=== PATIENT | female | born 1935 | race Caucasian/White ===

== ENCOUNTER 2019-10-02 11:10 | Emergency (ER) | payer MEDICARE, SELFPAY ==
[2019-10-02 11:24] VITALS: BP 116/75; PULSE 117; RESP 16; TEMP 36.7; O2SAT 98
--- NOTE | 2019-10-02 11:37 | ED.URI ---
HPI - URI/Sore Throat General Chief Complaint: Upper Respiratory Infection Stated Complaint: sore throat Time Seen by Provider: 10/02/19 11:37 Source: patient and RN notes reviewed History of Present Illness HPI Narrative: Patient is an 83-year-old female that presents the urgent care with complaints of a one-week sore throat postnasal drainage, runny nose and cough. Patient states she is followed up with her doctor and was told to use Claritin which does not seem to help . Patient states she is also been using nasal spray without any relief. Patient has not followed up with an ENT. Denies any fever, chills, nausea, vomiting. No other acute complaints. No acute distress noted. Patient aware of the plan of care. Related Data Home Medications Medication Instructions Recorded Confirmed No Home Medications 10/02/19 10/02/19 Allergies Allergy/AdvReac Type Severity Reaction Status Date / Time hydromorphone Allergy Mild Nausea and Verified 10/02/19 11:42 Vomiting meloxicam Allergy Mild Nausea and Verified 10/02/19 11:42 Vomiting morphine Allergy Mild Nausea and Verified 10/02/19 11:42 Vomiting ALL PAIN MEDICINES AdvReac Unknown Nausea and Uncoded 07/24/17 16:37 Vomiting Review of Systems Review of Systems: Narrative: CONSTITUTIONAL: Denies fever, chills, or sweats. EYES: Denies visual changes, redness, or discharge. ENT: Reports of sore throat, postnasal drainage, runny nose CARDIOVASCULAR: Denies chest pain, palpitations, or edema. RESPIRATORY: Denies cough or dyspnea. GASTROINTESTINAL: Denies abdominal pain, nausea, vomiting, or diarrhea. GENITOURINARY: Denies dysuria or hematuria. SKIN: Denies rash or itching. MUSCULOSKELETAL: Denies back pain, joint pain, or myalgia. NEUROLOGIC: Denies headache, numbness, or weakness. All other systems reviewed are negative, except as documented in HPI. [facility] Past Medical History Medical History (Updated 10/02/19 @ 12:01 by PARTHA Lowe) Chronic bilateral low back pain without sciatica Insomnia Mixed stress and urge urinary incontinence Seasonal allergies Thyroid nodule Unspecified osteoarthritis, unspecified site Social History Social History Smoking status: Never smoker Alcohol intake: never Comments At the time of my signature, I reviewed and agree with the nursing past medical, surgical, social, and family history. There is no relevant family history pertinent to the patient complaint. Exam Narrative: Exam Narrative: GENERAL: This is a well-nourished, well-developed patient, in no apparent distress. HEAD: normocephalic, atraumatic. EYES: PERRL. Sclera clear/white. Vision is grossly intact. EARS: External ears normal, auditory canals clear and without drainage, TMs normal without perforation. Hearing grossly intact. NOSE: External nose normal with no obvious nasal discharge, mild bilateral erythemic nares with clear rhinorrhea THROAT: Mucous membranes moist, posterior pharynx clear. Mild postnasal drainage NECK: Neck supple, non-tender without lymphadenopathy CARDIOVASCULAR: Regular rate and rhythm without murmurs, gallops, or rubs. RESPIRATORY: Clear to auscultation. Breath sounds equal bilaterally. No wheezes, rales, or rhonchi. SKIN: warm, intact with no suspicious lesions or rash, good texture and turgor. NEURO: awake, alert, and oriented to person, place and time. There were no obvious focal neurologic abnormalities. EXTREMITIES: No clubbing, cyanosis, or edema. Course Vital Signs Vital signs: Vital Signs Temperature 98.1 F 10/02/19 11:24 Pulse Rate 117 H 10/02/19 11:24 Respiratory Rate 16 10/02/19 11:24 Blood Pressure 116/75 10/02/19 11:24 Pulse Oximetry 98 10/02/19 11:24 Temperature 99.0 F 10/02/19 11:48 Pulse Rate 115 H 10/02/19 11:48 Respiratory Rate 21 H 10/02/19 11:48 Blood Pressure 104/69 10/02/19 11:48 Pulse Oximetry 100
[2019-10-02 11:48] VITALS: BP 104/69; PULSE 115; RESP 21; TEMP 37.2; O2SAT 100
== END 2019-10-02 12:05 | disposition home or self-care (01) ==
PROVIDERS: Emergency Provider Nurse Practitioner Family
DX: J30.9 Allergic rhinitis, unspecified (principal)
CPT/HCPCS: 87081; 87880; 99213; G0463

== ENCOUNTER → 2020-07-24 13:43 | Outpatient (CLI) | payer MEDICARE, SELFPAY ==
--- NOTE | ~2020-07-24 | XR_ITS ---
EXAMINATION: XR ankle RT min 3V EXAM DATE: 07/24/2020 14:01 INDICATION: Right ankle pain anteriorly, swelling. No known recent injury. TECHNIQUE: Right ankle frontal, lateral and oblique projections obtained and reviewed. There is no p rior study for comparison. 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 There is mild right ankle osteoarthritis. There are no acute fractures or dislocations iden tified. There is no subcutaneous gas. There is soft tissue swelling over the ankle anterolaterally. There are no radiopaque foreign bodies. IMPRESSION: Mild right ankle osteoarthritis. Probable osteochondritis desiccation. Soft tissue swelli ng. Reviewed, dictated and finalized at location A. ETING CLERK IMPRESSION: Mild right ankle osteoarthritis. Probable osteochondritis desiccati on. Soft tissue swelling.
== END ==
PROVIDERS: PCP Nurse Practitioner; Visit Provider Nurse Practitioner
DX: M19.071 Primary osteoarthritis, right ankle and foot (principal)
CPT/HCPCS: 73610

== ENCOUNTER 2020-09-01 14:59 | Outpatient (CLI) | payer MEDICARE, SELFPAY ==
--- NOTE | ~2020-09-01 | MR_ITS ---
EXAMINATION: MR lumbar spine wo con DATE: 09/01/2020 16:10 INDICATION: Low back pain. TECHNIQUE: Magnetic resonance imaging (MRI) of the lumbar spine was performed without intravenous con trast. Sequences included sagittal T2-weighted FSE, sagittal T2-weighted FS FSE, sagittal T1-weighted FSE, and axial T2-weighted FSE. COMPARISON: Lumbar spine radiographs 06/12/2019 FINDINGS: There is 14 degrees dextroscoliosis of lumbar spine. There is 3 mm retrolisthesis of T11 on T12. Vertebral body heights are normal. There is severely decreased disc height at T11-T12, mildly d ecreased disc height at T12-L1 and L1-L2, and severely decreased disc height from L2-L3 through L4-L5 with endplate remodeling. The distal spinal cord signal intensity is normal. The conus medullaris is at L1. There are cysts in left kidney measuring up to 14 mm. The following disc levels are specifica lly discussed: L1-L2: The disc is bulging. There is mild bilateral facet joint osteoarthritis. There is mild bilater al neural foraminal stenosis. There is mild central canal stenosis. L2-L3: The disc is bulging. There is mild bilateral facet joint osteoarthritis. There is mild bilater al neural foraminal stenosis. There is mild central canal stenosis. L3-L4: The disc is bulging. There is moderate severe left facet joint osteoarthritis. There is mild r ight and moderate left neural foraminal stenosis. There is mild central canal stenosis. L4-L5: The disc is bulging. There is severe bilateral facet joint osteoarthritis. There is mild right and moderate left neural foraminal stenosis. There is mild central canal stenosis. L5-S1: The disc is bulging. There is severe bilateral facet joint osteoarthritis. There is mild bilat eral neural foraminal stenosis. There is mild central canal stenosis. IMPRESSION: 1. Severe lumbar spondylosis. 2. Lumbar dextroscoliosis. Reviewed, dictated and finalized at location A. PLOTTER
== END 2020-09-01 15:00 | disposition home or self-care (01) ==
PROVIDERS: PCP Nurse Practitioner; Visit Provider Nurse Practitioner
DX: M47.896 Other spondylosis, lumbar region (principal)
CPT/HCPCS: 72148

== ENCOUNTER 2020-10-16 12:38 | Outpatient (CLI) | payer MEDICARE, SELFPAY ==
--- NOTE | ~2020-10-16 | US_ITS ---
EXAMINATION: US thyroid DATE: 10/16/2020 13:06 INDICATION: Nontoxic single thyroid nodule. TECHNIQUE: Multiple ultrasound images of the thyroid were obtained. COMPARISON: None. FINDINGS: The right thyroid lobe measures 3.5 x 1.9 x 1.9 cm. The left thyroid lobe measures 5.3 x 3.5 x 3.1 c m. In the right thyroid lobe, there is a 13 mm solid, hypoechoic, yhmpr-lgnz-obce nodule with smooth margin with punctate echogenic foci (TI-RADS TR5). In the left thyroid lobe, there is a 3.3 cm solid , hypoechoic, mlhey-[id number]-[id number] nodule with lobulated margin and punctate echogenic foci (TR5). IMPRESSION: 1. Multinodular goiter. Ultrasound-guided fine-needle aspiration of both nodules is recommended. Reviewed, dictated and finalized at location A. R SERVICES COORDINATOR IMPRESSION: 1. Multinodular goiter. Ultrasound-guided fine-needle aspiration of both nodule s is recommended.
== END 2020-10-16 12:39 | disposition home or self-care (01) ==
LOC: ANHIMG 12:43
PROVIDERS: PCP Nurse Practitioner; Visit Provider Nurse Practitioner
DX: E04.2 Nontoxic multinodular goiter (principal)
CPT/HCPCS: 76536

== ENCOUNTER 2020-11-05 13:34 | Outpatient (CLI) | payer MEDICARE, SELFPAY ==
--- NOTE | ~2020-11-05 | US_ITS ---
EXAMINATION: 1. US FNA w image guidance 2. US FNA additional DATE: 11/05/2020 14:44 INDICATION: Nontoxic thyroid nodules. TECHNIQUE: The procedure and its benefits and risks were discussed with the patient. Risks specifically discusse d included bleeding. The patient verbalized understanding of the risks and agreed to proceed. The nec k was prepped and draped in the usual sterile manner. 1% lidocaine was used for local anesthesia. 5 passes were made with a 25G needle into the lesion in right thyroid lobe under ultrasound guidance. 5 passes were made with a 25G needle into the lesion in left thyroid lobe under ultrasound guidance. There were no immediate complications. FINDINGS: Grayscale ultrasound images demonstrate needles advanced into a 13 mm nodule in right thyroid lobe fo r biopsy. Grayscale ultrasound images demonstrate needles advanced into a 3.3 cm nodule in left thyro id lobe IMPRESSION: 1. Ultrasound-guided fine needle aspiration of a right thyroid nodule. 2. Ultrasound-guided fine-needle aspiration of a left thyroid nodule. Reviewed, dictated and finalized at location A. IMPRESSION: 1. Ultrasound-guided fine needle aspiration of a right thyroid nodule. 2. Ultrasound-guided fine-needle aspiration of a left thyroid nodule.
== END 2020-11-05 13:35 | disposition home or self-care (01) ==
PROVIDERS: PCP Nurse Practitioner; Visit Provider Nurse Practitioner
DX: E04.1 Nontoxic single thyroid nodule (principal)
CPT/HCPCS: 10005; 10006; 88173; 88305

== ENCOUNTER 2020-11-28 13:11 | Emergency (ER) | payer MEDICARE, SELFPAY ==
--- NOTE | ~2020-11-28 | XR_ITS ---
EXAMINATION: XR chest 1V INDICATION: Cough, COVID 19 positive TECHNIQUE: AP view of the chest is obtained. COMPARISON: 12/06/2016 FINDINGS: The lungs are hyperinflated but free of acute opacities. There is no pleural effusion or pn eumothorax. The cardiomediastinal silhouette is normal. There is an old healed fracture of the proxim al right humerus. IMPRESSION: 1. No acute cardiopulmonary abnormality. Reviewed, dictated and finalized at location A.
[2020-11-28 14:06] VITALS: BP 104/54; PULSE 62; RESP 18; TEMP 36.5; O2SAT 98
--- NOTE | 2020-11-28 14:16 | ED.GENADULT ---
HPI - General Adult General Chief complaint: Nausea/Vomiting/Diarrhea Stated complaint: Covid +, diarrhea, h/a, weakness Time Seen by Provider: 11/28/20 14:02 History of Present Illness HPI narrative: Symptoms started 4 days ago. Tested positive for covid yesterday. Having diarrhea or at least 5 times a day, decreased apetite with decreased intake. Diffuse back pain FUNK with minimal activities - just SOB after just walking a few feet. Feeling weak Admits to cough No fevers. Lives with her who is also ill with covid and being seen here as a patient. Related Data Allergies Allergy/AdvReac Type Severity Reaction Status Date / Time hydromorphone Allergy Mild Nausea and Verified 11/28/20 14:35 Vomiting meloxicam Allergy Mild Nausea and Verified 11/28/20 14:35 Vomiting morphine Allergy Mild Nausea and Verified 11/28/20 14:35 Vomiting ALL PAIN MEDICINES AdvReac Unknown Nausea and Uncoded 11/28/20 14:35 Vomiting Review of Systems Constitutional: Constitutional: Reports as per HPI, Denies fever(s), Denies night sweats and Reports weakness Cardiovascular: Cardiovascular: Denies chest pain, Denies edema, Denies leg edema, Reports dyspnea and Denies orthopnea Respiratory: Respiratory: Reports cough and Reports dyspnea Gastrointestinal: Gastrointestinal: Denies abdominal pain, Denies constipation, Reports diarrhea, Reports loose stools, Denies nausea and Denies vomiting Musculoskeletal: Musculoskeletal: Denies abnormal gait, Denies back pain, Denies numbness and Denies tingling Neurologic: Denies Abnormal speech present, Denies abnormal gait, Denies numbness, Denies tingling and Denies weakness Psychiatric: Psychiatric: Denies homicidal ideation and Denies suicidal ideation [facility] Past Medical History Medical History (Updated 11/28/20 @ 19:17 by Cristian Diamond PA-C) Chronic bilateral low back pain without sciatica Insomnia Mixed stress and urge urinary incontinence Seasonal allergies Thyroid nodule Unspecified osteoarthritis, unspecified site Family History Family History (Updated 11/09/20 @ 13:29 by Isa Scott CMA) Father Alcoholism Social History Social History (Updated 11/09/20 @ 13:29 by Isa Scott CMA) Smoking status: Never smoker Alcohol intake: never Substance use: never Substance use type: does not use Exam Const: General: cooperative, healthy appearing, comfortable, no acute distress, well developed, alert, awake and Physically active Orientation/consciousness: patient oriented x3 Other: Elderly, frail, pleasant, cooperative HENMT: Head: normal to inspection, normocephalic and atraumatic Ears: external ears normal General nose exam: Normal external nose present Eyes: Pupils: Equal, round and reactive pupils present EOM: EOMs intact bilaterally Neck: Neck: normal visual inspection Chest: Chest palpation & inspection: normal inspection of the chest and no tenderness Resp: Effort & Inspection: normal respiratory effort and able to speak in complete sentences Auscultation: clear to auscultation bilaterally Cardio: Rate: regular rate Rhythm: regular rhythm GI: Inspection: normal to inspection GI Palp: No abdominal tenderness : General: Yes no CVA tenderness Back/Spine/Pelvis: Back: no CVA tenderness Skin: General skin exam: normal color and no rashes or lesions noted Lesions: no lesions Neuro: General: patient oriented x3, no focal motor deficits and CN's II-XI intact bilaterally Cranial nerves: Yes Equal, round and reactive pupils present Speech: No Abnormal speech present Extrem: General: normal to inspection and full ROM Psych: Appearance: grossly normal and well kempt Mental Status: mental status grossly normal Speech and movement: Normal speech and movement present Affect: normal affect Thought process: Normal thought process present Course Course Emergency Course: EKG: Time: 1424. Rate: 59. Rhythm: Sin
--- NOTE | 2020-11-28 14:24 | ECG_ITS ---
Measurements Intervals [place] Rate: 59 P: 52 CT: 142 QRS: -42 QRSD: 116 T: 12 QT: 452 QTc: 448 Interpretive Statements SINUS BRADYCARDIA INTRAVENTRICULAR CONDUCTION DELAY CANNOT RULE OUT SEPTAL INFARCT, AGE INDETERMINATE BORDERLINE T WAVE ABNORMALITY- INFERIOR LEADS BASELINE ARTIFACT- AVR, AVL, AVF, V1-V2, V4-V6 ABNORMAL ECG Electronically Signed On 11-28-2020 15:11:10 CDT by Jc Everett D.O.
[2020-11-28 14:38] VITALS: BP 112/65; PULSE 61; RESP 18; O2SAT 96
[2020-11-28 14:51] LABS: Basophils Percent Auto 0.3 % (0.2-1.2); Hemoglobin 11.2 g/dL (12.0-15.0); Immature Granulocyte Absolute 0.01 K/mm3 (0.00-0.031); Immature Granulocyte Percent A 0.3 % (0-0.5); Immature Platelet Fraction Pct 5.3 % (0.9-11.2); Lymphocytes Absolute Auto 1.08 K/mm3 (0.9-3.2); Lymphocytes Percent Auto 37.6 % (18.3-44.2); Mean Corpuscular Hemoglobin 27.9 pg (26-34); Mean Corpuscular Volume 87.3 fl (80-100); Mean Platelet Volume 11.1 fl (7.4-10.4); Monocytes Absolute Auto 0.3 K/mm3 (0.1-0.6); Monocytes Percent Auto 9.4 % (2.6-8.5); Neutrophils Absolute Auto 1.5 K/mm3 (1.3-6.7); Neutrophils Percent Auto 52.4 % (45.5-73.1); Platelet Count Result 133 k/mm3 (150-375); Red Blood Count 4.01 M/mm3 (4.2-5.4); Red Cell Distribution Width 16.1 % (11.5-14.5); White Blood Count 2.9 K/mm3 (4.5-10.0)
[2020-11-28] MEDS: ONDANSETRON INJ 4 MG/2 ML VIAL IV PUSH (14:59)
[2020-11-28 15:00] LABS: Alanine Aminotransferase 28 U/L (4-35); Albumin Level 3.4 g/dL (3.5-5.1); Alkaline Phosphatase 70 U/L (38-126); Anion Gap 4 mmol/L (8-16); Aspartate Amino Transferase 59 U/L (14-36); Bilirubin,Total 0.3 mg/dL (0.2-1.3); Blood Urea Nitrogen 43 mg/dL (7-17); Calcium 9.1 mg/dL (8.4-10.2); Carbon Dioxide 26 mmol/L (22-30); Chloride 107 mmol/L (98-107); Estimated CRCL calculation 18 ml/min; Estimated Glomerular Filt Rate 29; Glucose 90 mg/dL (65-105); Potassium 4.4 mmol/L (3.4-5.0); Sodium 137 mmol/L (137-145)
[2020-11-28] MEDS: DIPHENOXYLATE/ATROPINE (*CRX) 2.5 MG TABLET 1 TABLET PO (15:00)
[2020-11-28] MEDS: LACTATED RINGERS 1,000 ML 999 ML IV CONT (15:01)
[2020-11-28] MEDS: KETOROLAC 15 MG/ML VIAL (*BKC) IV PUSH (15:01)
[2020-11-28 15:12] LABS: Troponin I 0.025 ng/mL (0.000-0.034)
--- NOTE | 2020-11-28 15:14 | PC.NURSE ---
Patient unable to urinate at this time and refusing to be straight cath at this time.
[2020-11-28 15:31] VITALS: TEMP 36.5
[2020-11-28] MEDS: LACTATED RINGERS 500 ML 999 ML IV CONT (15:52)
[2020-11-28 15:53] VITALS: BP 139/64; PULSE 64; RESP 13; O2SAT 100
[2020-11-28 16:53] LABS: Add Urine Microscopic? YES; Appearance Urine Clear (Clear); Bilirubin Urine Negative (Negative); Blood Urine Negative (Negative); Color Urine Yellow (Yellow); Glucose Urine UA Negative (Negative); Ketones Urine Negative (Negative); Leukocyte Esterase Ur Negative LEU/UL (Negative); Mucus Urine Rare /lpf; Nitrate Urine Negative (Negative); Protein Urine 1+ mg/dL (Negative); RBC Urine 0-2 /hpf (0-2); Specific Grav Ur 1.009 (1.001-1.035); Squamous Epithelial Cell Urine Rare /hpf (Few); Urobilinogen Urine Negative mg/dL (<2.0); WBC Urine 0-3 /hpf
[2020-11-28 17:58] VITALS: BP 156/72; PULSE 60; RESP 18; O2SAT 98
[2020-11-28 19:30] VITALS: BP 148/62; PULSE 60; RESP 18; O2SAT 98
== END 2020-11-28 19:30 | disposition home or self-care (01) ==
PROVIDERS: Physician Assistant Medical; Emergency Provider General Practice; PCP Nurse Practitioner
DX: U07.1 COVID-19 (principal); E86.0 Dehydration; R53.1 Weakness; M19.90 Unspecified osteoarthritis, unspecified site; N39.46 Mixed incontinence; M54.5 Low back pain; G89.29 Other chronic pain; R00.1 Bradycardia, unspecified; I45.9 Conduction disorder, unspecified; R94.31 Abnormal electrocardiogram [ECG] [EKG]
CPT/HCPCS: 36415; 71045; 80053; 81001; 84484; 85025; 85055; 93005; 96361; 96374; 96375; 99284; A9270; J1885; J2405; J7120

== ENCOUNTER 2023-01-09 15:11 | Emergency (ER) | payer MEDICARE, SELFPAY ==
--- NOTE | ~2023-01-09 | XR_ITS ---
EXAMINATION: XR ribs RT 2V w CXR 2V Exam Date/Time: 01/09/2023 15:28 CDT HISTORY: FELL X 1 WK AGO ON CONCRETE STEPS. RT RIB PAIN. Comparison: None available. RESULT: Lines, tubes, and devices: Cholecystectomy clips. Lungs and pleura: Diffuse reticular opacities. No focal consolidation. Cardiothymic silhouette: Cardiomegaly. Right hilar lymph node calcification. Other: Severe osteopenia which limits radiographic sensitivity. End-stage right shoulder arthritis. Mildly displaced right anterior fifth rib fracture. No acute upper abdominal finding. IMPRESSION: Senescent change and/or respiratory bronchiolitis. Mildly displaced right anterior fifth rib fracture . Reviewed, dictated and finalized at location K. IMPRESSION: Senescent change and/or respiratory bronchiolitis. Mildly displaced right anter ior fifth rib fracture.
[2023-01-09 15:16] VITALS: BP 139/72; PULSE 68; RESP 20; TEMP 37.6; O2SAT 100
--- NOTE | 2023-01-09 15:17 | ED.UPPEXIN ---
HPI - Extremity Injury (Upper) General Chief Complaint: Extremity Injury, Upper Stated Complaint: right shoulder/under arm injury Source: patient and RN notes reviewed Mode of arrival: ambulatory Limitations: no limitations History of Present Illness HPI narrative: 87-year-old female presents with concern for right rib pain after falling. Reports she fell a week ago. She reports someone helped her up off the ground pulling her up by her shoulders. She reports she feels like she pulled something in that area. She reports the pain will randomly shoot across her ribs under her breast. She denies trouble breathing. She denies shoulder joint pain, decreased sensation, strength, range of motion. She reports chronic right shoulder problems, she was told she needed shoulder joint replacement. MD complaint: injury to: right (Ribs) Related Data Home Medications Medication Instructions Recorded Confirmed melatonin 10 mg capsule 10 mg PO QHS 01/03/23 01/09/23 Allergies Allergy/AdvReac Type Severity Reaction Status Date / Time hydromorphone Allergy Mild Nausea and Verified 01/09/23 15:15 Vomiting meloxicam Allergy Mild Nausea and Verified 01/09/23 15:15 Vomiting morphine Allergy Mild Nausea and Verified 01/09/23 15:15 Vomiting ALL PAIN MEDICINES AdvReac Unknown Nausea and Uncoded 01/09/23 15:15 Vomiting Review of Systems Review of Systems: CONSTITUTIONAL: Denies malaise, chills, sweats, or fever. CARDIOVASCULAR: Denies chest pain, palpitations, or edema. RESPIRATORY: Denies cough or dyspnea. SKIN: Denies rash or itching, bruising, redness, swelling. MUSCULOSKELETAL: Reports right rib pain, shoulder blade pain NEUROLOGIC: Denies numbness, weakness All systems reviewed & are unremarkable except as noted in HPI and below PMFSH Past Medical History Medical History Chronic bilateral low back pain without sciatica COVID-19 Insomnia Mixed stress and urge urinary incontinence Onychomycosis due to dermatophyte Seasonal allergies Thyroid nodule Unspecified osteoarthritis, unspecified site Family History Family History Father Alcoholism Social History Social History Smoking status: Never smoker Alcohol intake: never Substance use: never Substance use type: does not use Comments At time of signature, agree with nursing past medical, surgical, social and family history. There is no relevant family history pertinent to the presenting complaint Exam Narrative: GENERAL: Well-appearing, well-nourished, and in no acute distress. HEAD: Normocephalic, atraumatic. EYES: PERRLA, conjunctivae clear NECK: Supple. CHEST: Speaks in full sentences. No respiratory distress. Clear to auscultation, breath sounds diminished on the right HEART: Regular rate and rhythm. Normal and equal peripheral pulses. EXTREMITIES: Right upper extremity has grossly normal strength and sensation, normal range of motion. No edema or ecchymosis. Normal sensation with sensitivity to light touch and pain. Right rib tenderness. No open wounds, no skin tenting, no devitalized tissue or atrophy, no trophic changes, no obvious deformity, alignment normal, nearby joints and structures intact. Distal pulses palpable and equal bilaterally, skin warm, dry, pink. Capillary refill less than 3 seconds. SKIN: Warm, dry, no rash. Tenderness under the right breast NEURO: Alert and oriented x3. PSYCH: Normal mood and affect Course Course Emergency Course: Patient reports pain medicines can give her an upset stomach, she reports she has taken tramadol in the past without problem. Patient would like a prescription for pain medicine to help control her rib pain. Patient is aware of diagnosis, understands and agrees to treatment plan. Anticipatory guidance given. Patient agrees
== END 2023-01-09 16:16 | disposition home or self-care (01) ==
PROVIDERS: Emergency Provider Nurse Practitioner
DX: S22.31XA Fracture of one rib, right side, initial encounter for closed fracture (principal); W19.XXXA Unspecified fall, initial encounter; M19.90 Unspecified osteoarthritis, unspecified site
CPT/HCPCS: 71046; 71100; 99213; G0463

== ENCOUNTER 2023-04-05 15:20 | Emergency (ER) | payer MEDICARE, SELFPAY ==
[2023-04-05 15:36] VITALS: BP 101/51; PULSE 60; RESP 18; TEMP 36.3; O2SAT 99
[2023-04-05 15:44] VITALS: BP 101/51; PULSE 60; RESP 18; TEMP 36.3; O2SAT 99
--- NOTE | 2023-04-05 15:54 | ED.FEMALEGU ---
HPI - Female Genitourinary General Chief complaint: Urogenital-Female Stated complaint: poss bladder infection Time Seen by Provider: 04/05/23 15:50 Source: patient Mode of arrival: ambulatory Limitations: no limitations History of Present Illness HPI Narrative: Pili is an 87-year-old female patient presenting to the clinic today with complaints of a possible bladder infection. She reports that she was seen for urinary symptoms 1 month ago and was given cephalexin and does not feel like her symptoms ever fully resolved. She reporting that she is having urinary frequency, urgency, low urine output, lower abdominal discomfort, and some left-sided back pain. She denies any fever or chills. She is conscious and alert/oriented x4. Related Data Home Medications Medication Instructions Recorded Confirmed carbidopa 25 mg-levodopa 100 mg 2 tablet PO TID PRN Pain 04/05/23 04/05/23 tablet (Sinemet) meclizine 25 mg tablet 25 mg PO BID PRN Dizziness 04/05/23 04/05/23 tramadol 50 mg tablet 50 mg PO Q4-6H PRN Pain 04/05/23 04/05/23 Allergies Allergy/AdvReac Type Severity Reaction Status Date / Time hydromorphone Allergy Mild Nausea and Verified 04/05/23 15:34 Vomiting meloxicam Allergy Mild Nausea and Verified 04/05/23 15:34 Vomiting morphine Allergy Mild Nausea and Verified 04/05/23 15:34 Vomiting ALL PAIN MEDICINES AdvReac Unknown Nausea and Uncoded 04/05/23 15:34 Vomiting Review of Systems Review of Systems: Pertinent positives per HPI. Patient denies any fever, chills, rash, headache, visual changes, dizziness, cough, runny nose, sore throat, shortness of breath, chest pain, palpitations, nausea, vomiting, diarrhea, constipation. [facility] Past Medical History Medical History Chronic bilateral low back pain without sciatica COVID-19 Insomnia Mixed stress and urge urinary incontinence Onychomycosis due to dermatophyte Seasonal allergies Thyroid nodule Unspecified osteoarthritis, unspecified site Family History Family History Father Alcoholism Social History Social History Smoking status: Never smoker Alcohol intake: never Substance use: never Substance use type: does not use Lack of Transportation: No Lack of Food: Never True Current Housing: I Have Housing Concerned About Future Housing: No Difficulty Paying Gas/Electric Bills: No Difficulty Paying for Meds: No Currently Unemployed: No Education: High School Diploma/GED Difficulty w/ Childcare or Family Care: No Comments At the time of my signature, I reviewed and agree with the nursing past medical, surgical, social, and family history. There is no relevant family history pertinent to the patient complaint. Exam Narrative: General: Well-developed, well nourished, in no apparent distress. Head: Normocephalic, atraumatic. Cardio: Regular rate and rhythm, s1 and s2 normal, no murmur appreciated. Resp: Clear to auscultation bilaterally, no rhonchi, rales, wheezing or rubs. Abdomen: Soft, pliable, bowel sounds present in all quadrants, tender to palpation lower abdomen over bladder, no organomegly, positive left CVAT tenderness. Course Course Emergency Course: Portions of this record may have been created with voice recognition software. Level of Care: Express Care Visit Vital Signs Vital signs: Vital Signs Temperature 36.3 C L 04/05/23 15:36 Pulse Rate 60 04/05/23 15:36 Respiratory Rate 18 04/05/23 15:36 Blood Pressure 101/51 L 04/05/23 15:36 Pulse Oximetry 99 04/05/23 15:36 Oxygen Delivery Room Air 04/05/23 15:36 Temperature 36.3 C L 04/05/23 15:44 Pulse Rate 60 04/05/23 15:44 Respiratory Rate 18 04/05/23 15:44 Blood Pressure 101/51 L 04/05/23 15:44 Pulse Oximetry 99 04/05/23 15:44
[2023-04-05] MEDS: cefTRIAXone 500 MG, LIDOCAINE HCL 1% LOCAL INJ 1 ML IM (16:11)
== END 2023-04-05 16:31 | disposition home or self-care (01) ==
PROVIDERS: Emergency Provider Nurse Practitioner Family; PCP Physician Assistant
DX: N10 Acute pyelonephritis (principal); M19.90 Unspecified osteoarthritis, unspecified site; Z86.16 Personal history of COVID-19
CPT/HCPCS: 81003; 87077; 87086; 87186; 96372; 99213; G0463; J0696

== ENCOUNTER → 2023-09-20 12:40 | Outpatient (CLI) | payer MEDICARE, SELFPAY ==
--- NOTE | ~2023-09-20 | XR_ITS ---
XR thoracic spine 3V DATE: 09/20/2023 13:24 INDICATION: Fall on right shoulder. Upper back pain. TECHNIQUE: AP, lateral, swimmer views COMPARISON: None FINDINGS: There is diffuse osteopenia. There is thoracic kyphosis and thoracolumbar levoscoliosis. There is suboptimal visualization particularly of the upper thoracic vertebrae due to scoliosis and r otation of the patient. Repeat lateral and swimmer views in more true lateral position would be helpf ul. Further evaluation may be obtained by CT thorax examination. No thoracic paraspinal soft tissue thickening is detected. There are degenerative changes of the thoracic and lumbar spine including multilevel degenerative dis c disease of the lumbar spine. Status post cholecystectomy. IMPRESSION: Limited evaluation, particularly in the upper thoracic spine, due to kyphoscoliosis and s uboptimal positioning. Consider repeat views or possibly CT thorax Reviewed, dictated and finalized at location B. NOLOGY TRAINING ASSOCIATE IMPRESSION: Limited evaluation, particularly in the upper thoracic spine, due t o kyphoscoliosis and suboptimal positioning. Consider repeat views or possibly CT thorax
--- NOTE | ~2023-09-20 | XR_ITS ---
XR shoulder RT min 2V DATE: 09/20/2023 13:23 INDICATION: Fall and posterior shoulder. Right shoulder pain. TECHNIQUE: 4 views COMPARISON: None FINDINGS: There is diffuse osteopenia. There is prominent osteophytic spurring of the right humeral head. No fracture, dislocation, periosteal reaction or bone destruction or abnormal right shoulder soft tis kristy calcification is evident. IMPRESSION: Prominent right glenohumeral osteoarthritis Osteopenia Reviewed, dictated and finalized at location B. DRYER MECHANIC
== END ==
PROVIDERS: PCP Physician Assistant; Visit Provider Physician Assistant
DX: M54.6 Pain in thoracic spine (principal); G89.29 Other chronic pain; M19.011 Primary osteoarthritis, right shoulder; M85.811 Other specified disorders of bone density and structure, right shoulder
CPT/HCPCS: 72072; 73030

== ENCOUNTER 2024-03-10 10:11 | Emergency (ER) | payer MEDICARE, SELFPAY ==
[2024-03-10 10:18] VITALS: BP 96/62; PULSE 97; RESP 18; TEMP 36.4; O2SAT 96
--- NOTE | 2024-03-10 11:02 | ED.GENADULT ---
HPI - General Adult General Chief complaint: Urogenital-Female Stated complaint: Urinary Problem Source: patient Mode of arrival: ambulatory Limitations: no limitations History of Present Illness HPI narrative: Patient presents for evaluation of urinary symptoms since 0100 this morning. Symptoms include urinary frequency, urgency, incomplete emptying and mild dysuria. She denies any fever, chills, nausea, vomiting, abdominal pain or low back pain. Related Data Home Medications Medication Instructions Recorded Confirmed carbidopa 25 mg-levodopa 100 mg 1 tablet PO TID 02/14/24 02/17/24 tablet melatonin 3 mg tablet 3 mg PO HS PRN Insomnia 02/14/24 02/17/24 pantoprazole 40 mg tablet,delayed 40 mg PO BID 02/17/24 02/17/24 release trazodone 100 mg tablet mg 03/10/24 Allergies Allergy/AdvReac Type Severity Reaction Status Date / Time hydromorphone Allergy Mild Nausea and Verified 03/10/24 10:35 Vomiting meloxicam Allergy Mild Nausea and Verified 03/10/24 10:35 Vomiting morphine Allergy Mild Nausea and Verified 03/10/24 10:35 Vomiting ALL PAIN MEDICINES AdvReac Unknown Nausea and Uncoded 03/10/24 10:35 Vomiting Review of Systems Review of Systems: CONSTITUTIONAL: Denies fever, chills, or sweats. EYES: Denies visual changes, redness, or discharge. ENT: Denies rhinorrhea, congestion, sore throat, or otalgia. CARDIOVASCULAR: Denies chest pain, palpitations, or edema. RESPIRATORY: Denies cough or dyspnea. GASTROINTESTINAL: Denies abdominal pain, nausea, vomiting, or diarrhea. GENITOURINARY: Reports urinary frequency, urgency, incomplete emptying and mild dysuria. SKIN: Denies rash or itching. MUSCULOSKELETAL: Denies back pain, joint pain, or myalgia. NEUROLOGIC: Denies headache, numbness, dizziness, or weakness. PSYCHIATRIC: Denies anxiety or depression. [facility] Past Medical History Medical History (Updated 03/10/24 @ 11:03 by Angel Mayes, PARTHA, NAVID) Chronic bilateral low back pain without sciatica COVID-19 Insomnia Mixed stress and urge urinary incontinence Onychomycosis due to dermatophyte Seasonal allergies Thyroid nodule Unspecified osteoarthritis, unspecified site Surgical History Surgical History No pertinent past surgical history Family History Family History Father Alcoholism Social History Social History Smoking status: Never smoker Alcohol intake: never Substance use: never Substance use type: does not use Do You Feel Safe in your Home?: Yes Lack of Transportation: No Lack of Food: Never True Current Housing: I Have Housing Concerned About Future Housing: No Difficulty Paying Gas/Electric Bills: No Difficulty Paying for Meds: No Currently Unemployed: No Education: High School Diploma/GED Difficulty w/ Childcare or Family Care: No Spiritual care concerns: No Exam Narrative: GENERAL: Well-appearing, well-nourished, and in no acute distress. HEAD: Normocephalic, atraumatic. EYES: PERRLA and EOMI. ENT: Nares clear, no rhinorrhea or epistaxis. Mucous membranes moist. Oropharynx without tonsillar hypertrophy exudate or other lesions. Bilateral TMs pearly rothman nonbulging NECK: Supple. No adenopathy or masses. No carotid bruits or JVD CHEST: Clear to auscultation. No respiratory distress. No wheezes rales or rhonchi HEART: Regular rate and rhythm. No murmur heard. Normal peripheral pulses. ABDOMEN: Soft, nontender, nondistended, normal active bowel sounds. BACK: No CVA tenderness EXTREMITIES: Normal range of motion. No edema. SKIN: Warm, dry, no rash. NEURO: No focal deficits. Alert and oriented x3. PSYCH: Normal mood and affect. Course Course Emergency Course: This is an 88-year-old female who presented for evaluation of urinary symptoms.
[2024-03-10 11:06] LABS: EDUAAPPEAR Cloudy; EDUABILI Negative; EDUABLOOD 2+; EDUACOLOR1 Light/Pale; EDUAGLUCOSE Negative; EDUAKETONE Negative; EDUALEUKO 2+; EDUANITRATE Positive; EDUAPROTEIN 3+; EDUAUROBILI 0.2
== END 2024-03-10 11:08 | disposition home or self-care (01) ==
PROVIDERS: Emergency Provider Nurse Practitioner; PCP Physician Assistant
DX: N39.0 Urinary tract infection, site not specified (principal); M19.90 Unspecified osteoarthritis, unspecified site; Z86.16 Personal history of COVID-19
CPT/HCPCS: 81003; 87077; 87086; 87088; 87186; 99213; G0463

== ENCOUNTER 2024-04-03 08:03 | Emergency (ER) | payer MEDICARE, SELFPAY ==
--- NOTE | 2024-04-03 08:15 | ED.EAR ---
HPI - Ear Problem General Chief complaint: Ear Stated complaint: Something in ear Time Seen by Provider: 04/03/24 08:22 Source: patient, family, RN notes reviewed and old records reviewed Mode of arrival: ambulatory Limitations: no limitations History of Present Illness HPI Narrative: 88 year old female who presents accompanied by with complaints of noting blood on her pillow this morning. Patient reports that she thinks there is a bug in her left ear. Patient reports that she has dried blood in her ear canal now. Patient denies any cough or any sore throat or any nasal congestion. Patient reports some discomfort to her left ear denies any known fever. MD Complaint: ear pain and other (blood in ear) Location: left ear Duration: intermittent Severity: moderate Discharge from ear: Reports yes - bloody Treatment prior to arrival: none Related Data Home Medications Medication Instructions Recorded Confirmed carbidopa 25 mg-levodopa 100 mg 1 tablet PO TID 02/14/24 02/17/24 tablet melatonin 3 mg tablet 3 mg PO HS PRN Insomnia 02/14/24 02/17/24 pantoprazole 40 mg tablet,delayed 40 mg PO BID 02/17/24 02/17/24 release trazodone 100 mg tablet mg 03/10/24 Allergies Allergy/AdvReac Type Severity Reaction Status Date / Time hydromorphone Allergy Mild Nausea and Verified 03/10/24 10:35 Vomiting meloxicam Allergy Mild Nausea and Verified 03/10/24 10:35 Vomiting morphine Allergy Mild Nausea and Verified 03/10/24 10:35 Vomiting ALL PAIN MEDICINES AdvReac Unknown Nausea and Uncoded 03/10/24 10:35 Vomiting Review of Systems Review of Systems: CONSTITUTIONAL: Denies malaise, chills, sweats, or fever. EYES: Denies visual changes, redness, or discharge. ENT: Reports no rhinorrhea, congestion, sinus pain, positive for left otalgia and no sore throat. CARDIOVASCULAR: Denies chest pain, palpitations, or edema. RESPIRATORY: Reports no cough.? Denies dyspnea. GASTROINTESTINAL: Denies abdominal pain, nausea, vomiting, diarrhea SKIN: Denies rash or itching. MUSCULOSKELETAL: Denies myalgia. NEUROLOGIC: Denies headache. All systems reviewed & are unremarkable except as noted in HPI and below PMFSH Past Medical History Medical History (Updated 04/04/24 @ 08:06 by Deisy Carney NP) Chronic bilateral low back pain without sciatica COVID-19 Insomnia Mixed stress and urge urinary incontinence Onychomycosis due to dermatophyte Pacemaker Parkinson's disease Seasonal allergies Smoldering multiple myeloma Thyroid nodule Unspecified osteoarthritis, unspecified site Surgical History Surgical History History of arthroscopy of right shoulder rotator cuff History of cataract surgery History of hysterectomy History of total left knee replacement (TKR) Family History Family History Father Alcoholism Social History Social History Smoking status: Never smoker Alcohol intake: never Substance use: never Substance use type: does not use Do You Feel Safe in your Home?: Yes Lack of Transportation: No Lack of Food: Never True Current Housing: I Have Housing Concerned About Future Housing: No Difficulty Paying Gas/Electric Bills: No Difficulty Paying for Meds: No Currently Unemployed: No Education: High School Diploma/GED Difficulty w/ Childcare or Family Care: No Spiritual care concerns: No Comments At time of signature, agree with nursing past medical, surgical, social and family history. There is no relevant family history pertinent to the presenting complaint Exam Narrative: GENERAL: chronic ill-appearing, fair-nourished,frail and in no acute distress. HEAD: Normocephalic EYES: PERRLA, conjunctivae clear ENT: Nares clear, turbinates edematous and erythematous, clear discharge.
[2024-04-03 08:17] VITALS: BP 111/72; PULSE 90; RESP 14; TEMP 36.9; O2SAT 94
== END 2024-04-03 08:39 | disposition home or self-care (01) ==
PROVIDERS: Emergency Provider Registered Nurse; PCP Physician Assistant
DX: H60.92 Unspecified otitis externa, left ear (principal); H92.22 Otorrhagia, left ear; G20.A1 Parkinson's disease without dyskinesia, without mention of fluctuations; M19.90 Unspecified osteoarthritis, unspecified site; Z95.0 Presence of cardiac pacemaker; Z86.16 Personal history of COVID-19; Z96.652 Presence of left artificial knee joint
CPT/HCPCS: 99213; G0463

== ENCOUNTER 2024-04-07 13:56 | Emergency (ER) | payer MEDICARE, SELFPAY ==
[2024-04-07 14:12] VITALS: BP 124/68; PULSE 91; RESP 16; TEMP 36.7; O2SAT 95
--- NOTE | 2024-04-07 15:24 | ED.GENADULT ---
HPI - General Adult General Chief complaint: Wound/Laceration Stated complaint: Left Arm Injury Source: patient Mode of arrival: ambulatory Limitations: no limitations History of Present Illness HPI narrative: Patient presents for evaluation of redness, swelling, and erythema in the left upper extremity. She indicates she falls frequently is under the care of neurologist, Dr. Peralta, at [facility]. She states she fall approximately 1.5 months ago. She injured her left arm in the process. About 1 week ago she noticed redness, swelling and warmth to the left upper extremity. She denies any fever, chills, nausea, vomiting. Left upper extremities ia weeping a clear yellow fluid. Related Data Home Medications Medication Instructions Recorded Confirmed carbidopa 25 mg-levodopa 100 mg 1 tablet PO TID 02/14/24 02/17/24 tablet melatonin 3 mg tablet 3 mg PO HS PRN Insomnia 02/14/24 02/17/24 pantoprazole 40 mg tablet,delayed 40 mg PO BID 02/17/24 02/17/24 release trazodone 100 mg tablet mg 03/10/24 Allergies Allergy/AdvReac Type Severity Reaction Status Date / Time hydromorphone Allergy Mild Nausea and Verified 03/10/24 10:35 Vomiting meloxicam Allergy Mild Nausea and Verified 03/10/24 10:35 Vomiting morphine Allergy Mild Nausea and Verified 03/10/24 10:35 Vomiting ALL PAIN MEDICINES AdvReac Unknown Nausea and Uncoded 03/10/24 10:35 Vomiting Review of Systems Review of Systems: CONSTITUTIONAL: Denies fever, chills, or sweats. EYES: Denies visual changes, redness, or discharge. ENT: Denies rhinorrhea, congestion, sore throat, or otalgia. CARDIOVASCULAR: Denies chest pain, palpitations, or edema. RESPIRATORY: Denies cough or dyspnea. GASTROINTESTINAL: Denies abdominal pain, nausea, vomiting, or diarrhea. GENITOURINARY: Denies dysuria or hematuria. SKIN: Reports redness and warmth to the left upper extremity MUSCULOSKELETAL: Reports pain and swelling in left upper extremity NEUROLOGIC: Denies headache, numbness, dizziness, or weakness. PSYCHIATRIC: Denies anxiety or depression. [facility] Past Medical History Medical History Chronic bilateral low back pain without sciatica COVID-19 Insomnia Mixed stress and urge urinary incontinence Onychomycosis due to dermatophyte Pacemaker Parkinson's disease Seasonal allergies Smoldering multiple myeloma Thyroid nodule Unspecified osteoarthritis, unspecified site Surgical History Surgical History History of arthroscopy of right shoulder rotator cuff History of cataract surgery History of hysterectomy History of total left knee replacement (TKR) Family History Family History Father Alcoholism Social History Social History Smoking status: Never smoker Alcohol intake: never Substance use: never Substance use type: does not use Do You Feel Safe in your Home?: Yes Lack of Transportation: No Lack of Food: Never True Current Housing: I Have Housing Concerned About Future Housing: No Difficulty Paying Gas/Electric Bills: No Difficulty Paying for Meds: No Currently Unemployed: No Education: High School Diploma/GED Difficulty w/ Childcare or Family Care: No Spiritual care concerns: No Exam Narrative: GENERAL: Well-appearing, well-nourished, and in no acute distress. HEAD: Normocephalic, atraumatic. EYES: PERRLA and EOMI. ENT: Nares clear, no rhinorrhea or epistaxis. Mucous membranes moist. Oropharynx without tonsillar hypertrophy exudate or other lesions. Bilateral TMs pearly rothman nonbulging NECK: Supple. No adenopathy or masses. No carotid bruits or JVD CHEST: Clear to auscultation. No respiratory distress. No wheezes rales or rhonchi HEART: Regular rate an
== END 2024-04-07 15:30 | disposition short-term general hospital (02) ==
PROVIDERS: Emergency Provider Nurse Practitioner; PCP Physician Assistant
DX: R22.32 Localized swelling, mass and lump, left upper limb (principal); G20.A1 Parkinson's disease without dyskinesia, without mention of fluctuations; M19.90 Unspecified osteoarthritis, unspecified site; Z95.0 Presence of cardiac pacemaker; Z96.652 Presence of left artificial knee joint; Z85.79 Personal history of other malignant neoplasms of lymphoid, hematopoietic and related tissues
CPT/HCPCS: 99212; G0463